=== PATIENT | male | born 2000 | race Caucasian/White ===

== ENCOUNTER 2022-09-02 06:57 | Day surgery (SDC) | payer OTHER ==
[~2022-09-02] VITALS: Ht 175.3 cm; Wt 77.6 kg
[2022-09-02] MEDS ORDERED: LR 1,000 ML IV SCH ×2 (07:15→12:15)
[2022-09-02] MEDS ORDERED: LIDOCAINE 1% SDV 5ML VIAL SC PRN (07:15)
[2022-09-02] MEDS ORDERED: MIDAZOLAM INJ 2MG/2ML VIAL As Ordered ONE (09:03)
[2022-09-02] MEDS ORDERED: ACETAMINOPHEN 1000MG 100ML IV BAG As Ordered ONE (09:03)
[2022-09-02] MEDS ORDERED: ONDANSETRON 4MG 2ML VIAL As Ordered ONE (09:04)
[2022-09-02] MEDS ORDERED: fentaNYL 100 MCG/2 ML INJECTION As Ordered ONE (09:04)
[2022-09-02] MEDS ORDERED: LIDOCAINE 2% 100MG/5ML SDV (FOR ANES.) As Ordered ONE (09:04)
[2022-09-02] MEDS ORDERED: propofoL 200 MG/20 ML VIAL As Ordered ONE (09:04)
[2022-09-02] MEDS ORDERED: BUPIVACAINE HCL 0.25% 30ML VIAL As Ordered ONE (10:36)
[2022-09-02] MEDS ORDERED: LIDOCAINE 1% MDV 20ML VIAL As Ordered ONE (10:36)
[2022-09-02] MEDS ORDERED: GLYCOPYRROLATE INJ 0.2 MG/ML 2 ML VIAL As Ordered ONE (10:56)
[2022-09-02] MEDS ORDERED: ceFAZolin SOD 2 GM in IV 1 EA IV ONE (11:05)
[2022-09-02] MEDS ORDERED: ceFAZolin 2 GM/D5W 50 ML IV BAG As Ordered ONE (11:13)
[2022-09-02] MEDS ORDERED: KETOROLAC 60MG 2ML VIAL As Ordered ONE (11:21)
[2022-09-02] MEDS ORDERED: BACITRACIN OINTMENT 30GM TUBE As Ordered ONE (11:40)
[2022-09-02] MEDS ORDERED: PERC5TAB12 PO (12:14)
[2022-09-02] MEDS ORDERED: ONDANSETRON 4MG 2ML VIAL IV PRN (12:15)
[2022-09-02] MEDS ORDERED: fentaNYL 100 MCG/2 ML INJECTION IV PRN (12:15)
[2022-09-02] MEDS ORDERED: oxyCODONE 5MG TAB PO PRN (12:15)
[2022-09-02 13:30] VITALS: BP 126/70
== END 2022-09-02 13:45 | disposition home or self-care (01) ==
LOC: M SDC 06:57
PROVIDERS: ATTEND Orthopaedic Surgery Hand Surgery
DX: S61.210D Laceration without foreign body of right index finger without damage to nail, subsequent encounter (principal); F41.9 Anxiety disorder, unspecified; F17.220 Nicotine dependence, chewing tobacco, uncomplicated
CPT/HCPCS: 26418; 76000; J0131; J0690; J1100; J1885; J2250; J2405; J3010; S0020